=== PATIENT | male | born 1990 | race Hispanic/Latino ===

== ENCOUNTER 2019-10-31 10:00 | Emergency (ER) | payer SELFPAY ==
[~2019-10-31] VITALS: Ht 157.5 cm; Wt 63.5 kg
[~2019-10-31 10:00] MED LIST: MUCINEX D TABL1 EACH; Z.0.LEVOTHYROXINE25 PO; [UNRECOGNIZED DRUG - OTHER]
[2019-10-31] MEDS ORDERED: ONDANSETRON HCL 4 MG ORAL DISINTEGRATING TAB PO ONE (10:30)
[2019-10-31] MEDS ORDERED: IBUPROFEN 400 MG TAB PO ONE (10:30)
[2019-10-31 11:10] LABS: STREPTOCOCCUS GRP A ANTIGEN NEGATIVE (NEGATIVE)
[2019-10-31 11:28] LABS: INFLUENZAE A&B ANTIGEN (RAPID) POSITIVE FLU A (NEGATIVE)
--- NOTE | 2019-10-31 11:56 | Diagnostic Imaging Report ---
EXAMINATION: PA and lateral views of the chest. COMPARISON: None CLINICAL HISTORY: Fever, flu DISCUSSION: Lines/tubes: None. Lungs: The lungs are well inflated and clear. No pneumonia or pulmonary edema. Pleura: No pleural effusion or pneumothorax. Heart and mediastinum: The cardiomediastinal silhouette is normal. Bones and soft tissues: No acute bony abnormalities. IMPRESSION: No acute cardiopulmonary abnormalities. Signed by: Dr. Albert Suero M.D. on 10/31/2019 11:54 AM
[2019-10-31] MEDS ORDERED: ACETAMINOPHEN 325 MG TAB PO ONE (12:00)
[2019-10-31] MEDS ORDERED: ACETAMINOPHEN 325 MG TAB ONE (12:02)
[2019-10-31 12:04] VITALS: BP 114/73
== END 2019-10-31 12:05 | disposition home or self-care (01) ==
LOC: ER 10:00
DX: R50.9 Fever, unspecified (principal); R05 Cough; R11.0 Nausea; J11.1 Influenza due to unidentified influenza virus with other respiratory manifestations
CPT/HCPCS: 71046; 83518; 87070; 87400; 99283; Q0162